=== PATIENT | male | born 1985 | race African-American/Black ===

== ENCOUNTER 2017-07-06 11:25 | Emergency (ER) | payer OTHER ==
[2017-07-06 12:07] LABS: #Eosinphils 0.1 thou/uL (0.0-0.7); #Lymphocytes 1.7 thou/uL (1.20-3.40); #Monocytes 0.5 thou/uL (0.11-0.59); %Basophils 0.1 % (0.0-1.0); %Eosinophils 2.1 % (0.0-10.0); %Monocytes 10.9 % (0.0-10.0); Hematocrit 44.9 % (42.0-52.0); Red Blood Cell (RBC) Count 5.05 mill/uL (4.70-6.10); White Blood Cell (WBC) Count 4.2 thou/uL (4.8-10.8)
[2017-07-06 12:31] LABS: ALT (SGPT) 27 U/L (8-55); AST (SGOT) 16 U/L (5-34); Alkaline Phosphatase 62 U/L (40-150); Anion Gap 12 mmol/L (10-20); BUN (Urea Nitrogen) 13 mg/dL (8.9-20.6); Bilirubin, Total 0.4 mg/dL (0.2-1.2); CK (CPK) 385 U/L (30-200); Calc. Creatinine Clearance 0 mL/min (70-130); Calcium 9.4 mg/dL (7.8-10.44); Carbon Dioxide 25 mmol/L (22-29); Chloride 102 mmol/L (98-107); Estimated GFR-MDRD Greater than 90; Globulin 3.4 g/dL (2.4-3.5); Lipase 8 U/L (8-78); Protein, Total 7.5 g/dL (6.0-8.3)
[2017-07-06 12:36] LABS: Troponin I Less than 0.010 ng/mL (< 0.028)
--- NOTE | 2017-07-06 12:38 | RAD ---
PORTABLE CHEST 1 VIEW: Date: 07/06/17 Time: 1142 hours HISTORY: Chest pain. FINDINGS: The heart size is normal. The lungs are well expanded without focal areas of consolidation, pneumoth orax, or pleural effusions. IMPRESSION: No acute process. POS: [facility]
== END 2017-07-06 12:57 | disposition home or self-care (01) ==
LOC: ERS 11:25
DX: R09.1 Pleurisy (principal); F41.9 Anxiety disorder, unspecified
CPT/HCPCS: 36415; 71010; 80053; 82553; 83690; 83880; 84484; 85025; 85379; 93005

== ENCOUNTER 2018-06-27 02:23 | Emergency (ER) | payer OTHER ==
[2018-06-27 03:15] LABS: ALT (SGPT) 38 U/L (8-55); AST (SGOT) 22 U/L (5-34); Albumin 4.2 g/dL (3.5-5.0); Alkaline Phosphatase 53 U/L (40-150); Anion Gap 12 mmol/L (10-20); BUN (Urea Nitrogen) 14 mg/dL (8.9-20.6); Bilirubin, Total 0.3 mg/dL (0.2-1.2); Calc. Creatinine Clearance 0 mL/min (70-130); Calcium 9.1 mg/dL (7.8-10.44); Carbon Dioxide 23 mmol/L (22-29); Chloride 106 mmol/L (98-107); Estimated GFR-MDRD Greater than 90; Globulin 3.3 g/dL (2.4-3.5); Glucose 104 mg/dL (70-105); Potassium 4.3 mmol/L (3.5-5.1); Protein, Total 7.5 g/dL (6.0-8.3); Sodium 137 mmol/L (136-145)
[2018-06-27 03:18] LABS: CKMB 2.5 ng/mL (0-6.6); Troponin I Less than 0.010 ng/mL (< 0.028)
--- NOTE | 2018-06-27 08:52 | RAD ---
PORTABLE CHEST: HISTORY: Chest pain that started 3 days ago. COMPARISON: 06/2017 exam. FINDINGS: Heart size and mediastinum are within normal limits. The lungs were clear of infiltrates. No bony f indings. IMPRESSION: No active intrathoracic disease. POS: [facility]
== END 2018-06-27 03:52 ==
LOC: ERS 02:23
DX: R07.89 Other chest pain (principal); F41.9 Anxiety disorder, unspecified
CPT/HCPCS: 36415; 71045; 80053; 82553; 84484; 93005